=== PATIENT | female | born 1970 | race Two or more races ===

== ENCOUNTER 2016-08-23 15:16 | Emergency (ER) | payer SELFPAY ==
[~2016-08-23] VITALS: Ht 195.6 cm; Wt 102.1 kg
[2016-08-23] MEDS ORDERED: ACETAMINOPHEN 325 MG TABLET PO ONE (16:00)
[2016-08-23] MEDS ORDERED: ACETAMINOPHEN 325 MG TABLET ONE (16:14)
[2016-08-23] MEDS ORDERED: MECLIZINE HCL 25 MG TABLET ONE (19:09)
[2016-08-23] MEDS ORDERED: HYDROCODONE/APAP 5/325MG 1 EACH TABLET ONE (19:09)
[2016-08-23] MEDS ORDERED: MECLIZINE HCL 12.5 MG TABLET PO ONE (19:30)
[2016-08-23] MEDS ORDERED: HYDROCODONE/APAP 5/325MG 1 EACH TABLET PO ONE (19:30)
[2016-08-23 20:58] VITALS: BP 151/99
== END 2016-08-23 20:59 | disposition home or self-care (01) ==
LOC: ER 15:18
DX: S13.9XXA Sprain of joints and ligaments of unspecified parts of neck, initial encounter (principal); S40.011A Contusion of right shoulder, initial encounter; W19.XXXA Unspecified fall, initial encounter; Y93.89 Activity, other specified; Y92.89 Other specified places as the place of occurrence of the external cause; Y99.8 Other external cause status; Z88.0 Allergy status to penicillin; Z88.6 Allergy status to analgesic agent
CPT/HCPCS: 70450; 71010; 72074; 72125; 73030; 99284; A4606; J8597; L0172; Z7610